=== PATIENT | female | born 1990 | race Caucasian/White ===

== ENCOUNTER 2021-10-07 17:05 | Inpatient (IN) | payer OTHER ==
[2021-10-07 21:58] VITALS: BMI 21.3
[2021-10-07] MEDS ORDERED: ONDANSETRON *ODT* 4 MG TABLET SL PRN (22:18)
[2021-10-07] MEDS ORDERED: MAGNESIUM CITRATE 300 ML BOTTLE PO PRN (22:18)
[2021-10-07] MEDS ORDERED: P-EPHED 60MG/TRIPROLIDI 2.5MG TABLET PO PRN (22:18)
[2021-10-07] MEDS ORDERED: NALOXONE HCL 0.4 MG/ML VIAL IM PRN (22:18)
[2021-10-07] MEDS ORDERED: ACETAMINOPHEN 325 MG TABLET (FP) PO PRN ×2 (22:18)
[2021-10-07] MEDS ORDERED: NICOTINE POLACRILEX 2 MG GUM BUC PRN (22:18)
[2021-10-07] MEDS ORDERED: hydrOXYzine PAMOATE 25 MG CAPSULE (FP) PO PRN (22:18)
[2021-10-07] MEDS ORDERED: BISMUTH SUBSALICYLATE 524 MG/30 ML PO PRN (22:18)
[2021-10-07] MEDS ORDERED: guaiFENesin 200 MG/10 ML 10 ML UNIT-DOSE CUPS PO PRN (22:18)
[2021-10-07] MEDS ORDERED: IBUPROFEN 400 MG TABLET (FP) PO PRN (22:18)
[2021-10-07] MEDS ORDERED: MAG HYDROX/AL HYDROX/SIMETH 30 ML UNIT-DOSE CUP PO PRN (22:18)
[2021-10-07] MEDS ORDERED: DICYCLOMINE HCL 10 MG CAPSULE PO PRN (22:18)
[2021-10-07] MEDS ORDERED: MAGNESIUM HYDROX 2400MG/30ML ORAL SUSPENSION 30 ML CUP PO PRN (22:18)
[2021-10-07] MEDS ORDERED: NALOXONE (NARCAN) HCL 4 MG/0.1 ML SPRAY NS PRN (22:18)
[2021-10-07] MEDS ORDERED: MENTHOL/PHENOL 1 EACH UD MM PRN (22:18)
[2021-10-07] MEDS ORDERED: METHOCARBAMOL 500 MG TABLET PO PRN (22:18)
[2021-10-08 09:20] VITALS: BP 117/67; PULSE 68; TEMP 98.2
[2021-10-08] MEDS ORDERED: PRENATAL VITAMINS W/ FOLIC ACID TABLET (FP) PO SCH (10:00)
[2021-10-08] MEDS ORDERED: NICOTINE 21 MG/24 HOURS TOPICAL PATCH TD SCH (10:00)
[2021-10-08 10:49] LABS: HEMATOCRIT 39.8 % (32.4-45.2); HEMOGLOBIN 13.7 GM/dL (10.7-15.3); MCH 27.9 pg (25.7-33.7); MCHC 34.4 g/dl (32.0-36.0); MEAN CELL VOLUME 81.1 fl (80-96); MEAN PLT VOLUME 9.8 fl (7.5-11.1); PLATELET COUNT 146 10^3/uL (134-434); RDW 14.4 % (11.6-15.6)
[2021-10-08 10:58] LABS: BLOOD UREA NITROGEN 7.4 mg/dL (7-18); CREATININE 0.6 mg/dL (0.55-1.3)
[2021-10-08 11:00] LABS: BILIRUBIN,TOTAL 0.6 mg/dL (0.2-1); CALCIUM 9.1 mg/dL (8.5-10.1); TOT PROT 7.5 g/dl (6.4-8.2)
[2021-10-08] MEDS ORDERED: THIAMINE HCL 100 MG TABLET (FP) PO SCH (22:00)
[2021-10-08] MEDS ORDERED: MELATONIN 5 MG TABLETS PO SCH (22:00)
== END 2021-10-08 12:11 | disposition left against medical advice (07) | DRG 770 ==
LOC: YASAS 17:05 → Y6N 23:13
PROVIDERS: ADMIT Allergy & Immunology; ATTEND Allergy & Immunology
PROC: HZ2ZZZZ Detoxification Services for Substance Abuse Treatment (ICD-10-PCS; principal; 2021-10-07)
DX: F11.23 Opioid dependence with withdrawal (principal); F17.213 Nicotine dependence, cigarettes, with withdrawal; F19.24 Other psychoactive substance dependence with psychoactive substance-induced mood disorder; K59.03 Drug induced constipation; L90.5 Scar conditions and fibrosis of skin; R00.0 Tachycardia, unspecified; Z88.5 Allergy status to narcotic agent; Z20.822 Contact with and (suspected) exposure to COVID-19
CPT/HCPCS: 36415; 80053; 81025; 85027; 86780; 93005; 93010; C9803; U0003; U0005